=== PATIENT | female | born 1955 | race Two or more races ===

== ENCOUNTER 2017-06-12 07:22 | Day surgery (SDC) | payer OTHER ==
[2017-06-12] VITALS (33 sets, daily range): BP systolic 124–147; BP diastolic 67–77; PULSE 58–68; RESP 11–18; Ht 165.1 cm; Wt 87.5 kg
[~2017-06-12] VITALS: Ht 165.1 cm; Wt 87.5 kg
[2017-06-12] MEDS ORDERED: PROP20TA4 PO (08:01)
[2017-06-12] MEDS ORDERED: ATOR20TA38 PO (08:01)
[2017-06-12] MEDS ORDERED: NIAC500T81 PO (08:02)
[2017-06-12] MEDS ORDERED: NIT4 SL (08:02)
[2017-06-12] MEDS ORDERED: BENA20TA48 PO (08:03)
[2017-06-12] MEDS ORDERED: ASPI-664 PO (08:03)
[2017-06-12] MEDS ORDERED: METF500T4 PO (08:06)
--- NOTE | 2017-06-12 08:07 | RADRPT ---
PROCEDURE: XR Chest. CLINICAL INDICATION: PRE OP TECHNIQUE: Single frontal view of the chest was obtained COMPARISON: None FINDINGS: The heart and mediastinum are within normal limits. The lungs are clear. There is no pleural effusion or pneumothorax. There are mild degenerative changes of the glenohumeral joints bilaterally. IMPRESSION: No acute disease. RPTAT: PP Physician Eleanor Date Time Electronically viewed and signed by Berenice Joyce Physician on 06/12/2017 08:07 /
[2017-06-12 08:55] LABS: BASOPHILS % 0.5 % (0.0-2.0); EOSINOPHILS # 0.1 10^3/ul (0.0-0.5); EOSINOPHILS % 1.5 % (0.0-7.0); HEMOGLOBIN 10.1 g/dl (12.0-16.0); LYMPHOCYTES # 1.3 10^3/ul (0.8-2.9); LYMPHOCYTES % 32.9 % (15.0-51.0); MEAN CORPUSCULAR HEMOGLOBIN 27.5 pg (29.0-33.0); MEAN CORPUSCULAR HGB CONC 32.6 g/dl (32.0-37.0); MEAN CORPUSCULAR VOLUME 84.5 fl (82.0-101.0); MONOCYTE # 0.4 10^3/ul (0.3-0.9); MONOCYTES % 9.5 % (0.0-11.0); NEUTROPHIL # 2.2 10^3/ul (1.6-7.5); NEUTROPHILS % 55.4 % (39.0-77.0); PLATELET COUNT 187 10^3/UL (140-415); RED BLOOD COUNT 3.67 10^6/ul (4.20-5.40); RED CELL DISTRIBUTION WIDTH 15.3 % (11.5-14.5)
[2017-06-12 09:16] LABS: INR 0.89; PT RATIO 0.9
[2017-06-12 09:17] LABS: PARTIAL THROMBOPLASTIN TIME 28.7 Sec (25.0-35.0)
[2017-06-12 09:21] LABS: CHOL/HDL RATIO 3.9 RATIO
[2017-06-12 09:25] LABS: CALCIUM 9.3 mg/dl (8.4-10.2); CREATININE 1.33 mg/dl (0.44-1.00); POTASSIUM 4.6 mmol/L (3.5-5.1)
[2017-06-12] MEDS ORDERED: SOD CHLORIDE 0.9% 1,000 ML IV SCH (11:01)
[2017-06-12] MEDS ORDERED: ACETAMINOPHEN 325 MG TAB PO PRN (11:30)
[2017-06-12] MEDS ORDERED: morphine 2 MG INJ IV PRN (11:30)
[2017-06-12] MEDS ORDERED: ONDANSETRON 4 MG INJ IV PRN (11:30)
[2017-06-12] MEDS ORDERED: AL HYDROX/MG HYDROX/SIMETH 30 ML CUP PO PRN (11:30)
[2017-06-12] MEDS ORDERED: MIDAZOLAM 1 MG/ML 2 ML INJ ONE (18:03)
[2017-06-12] MEDS ORDERED: NITROGLYCERIN (IC) 100 MCG/ML INJ ONE (18:03)
[2017-06-12] MEDS ORDERED: IODIXANOL LOCM 100 ML BTL ONE (18:03)
[2017-06-12] MEDS ORDERED: HEPARIN 1000 UNITS/ML 10 ML INJ ONE (18:03)
[2017-06-12] MEDS ORDERED: SOD CHLORIDE 0.9% 500 ML ONE (18:03)
[2017-06-12] MEDS ORDERED: FENTAnyl 50 MCG/ML VIAL ONE (18:03)
[2017-06-12] MEDS ORDERED: VERAPAMIL 5 MG INJ ONE (18:03)
[2017-06-12] MEDS ORDERED: LIDOCAINE 1% (MDV) 20 ML INJ ONE (18:03)
--- NOTE | 2017-06-13 08:01 | RADRPT ---
Vent Rate: 61 bpm RR Interval: 0 msec MN Interval: 214 msec QRS Duration: 94 msec QT Interval: 418 msec QTC Interval: 420 msec P-R-T [place]: 7 - 54 - 56 degrees Sinus rhythm with 1st degree AV block Otherwise normal ECG Electronically Signed By: Miguelangel Low [id number]
--- NOTE | 2017-06-17 11:52 | CARRPT ---
DATE OF PROCEDURE: 06/12/2017 PROCEDURE: 1. Left heart catheterization. 2. Coronary angiography. 3. Measurement of left ventricular end-diastolic pressure. 4. 30 minutes conscious sedation. ATTENDING PHYSICIAN: Dayo Lozano MD REFERRING PHYSICIAN: ANESTHESIA: INDICATION: Positive stress test findings for anterior and inferior ischemia, chest pain. BRIEF HISTORY: Ms. Hernandez is a 61-year-old female with history of hypertension, dyslipidemia, who initially had complaints of substernal chest pain. The patient medical therapy and anterior and inferior ischemia. Given these findings, the patient is referred for catheterization for possibility of significant cardiac disease, chest pain and subsequent findings. PROCEDURE IN DETAIL: After informed consent was obtained, the patient was brought to the cardiac catheterization lab where her right radial area was prepped and draped in usual sterile fashion with 2 percent lidocaine. in order to achieve adequate anesthesia. Using modified Seldinger technique the right radial artery was cannulated and a 6-Amharic JL 3.5 catheter was used to cath the left main coronary ostium. was obtained. JL 3.5 guidewire and JR4 was used to cath the right coronary artery. was obtained. JR4 guidewire after being used to measure left ventricular end-diastolic pressure and pullback across the aortic valve. was removed. Subsequently at this time, the patient's sheath was removed. This completed the procedure. There were no noted complications. CORONARY ANGIOGRAPHY: Left main 4.5 mm stenosis circumflex proximally 3 mm vessel with 20 percent stenosis. The remainder of the circumflex is free of focal stenosis, gives off a mid branching obtuse marginal 3 mm with no significant focal stenosis. The LAD approximately is a 3.5 mm vessel. The mid portion has 20 percent stenosis. The remainder of the LAD is free of focal stenosis. There is a no focal stenosis. The right coronary artery proximally is a 3 mm vessel, had 20 percent stenosis in its mid portion, gives off a small PDA, 2 mm, with no significant focal stenosis. Measurement of left ventricular end-diastolic pressure is 14. No significant aortic stenosis or gradient. TOTAL FLUOROSCOPY TIME: 4.6 minutes. TOTAL CONTRAST: 80 mL. IMPRESSION: 1. Very mild nonobstructive coronary artery disease. 2. Normal left heart filling pressure. 3. No significant aortic stenosis or gradient. RECOMMENDATIONS: 1. . 2. . 3. The patient to be readmitted to the Center for post catheterization later in the afternoon. Dictated By: Charlene Rhodes /andrez/[email or web address] /Document#: [id number]
== END 2017-06-12 16:29 | disposition home or self-care (01) ==
LOC: SDS 07:22
PROVIDERS: ATTEND Internal Medicine
DX: I25.110 Atherosclerotic heart disease of native coronary artery with unstable angina pectoris (principal); E11.9 Type 2 diabetes mellitus without complications; E78.5 Hyperlipidemia, unspecified
CPT/HCPCS: 71010; 80048; 80061; 82465; 82962; 84478; 85025; 85610; 85730; 93005; 93458; C1769; C1887; J1644; J2250; J3010; J7040; Q9967; Z7610